=== PATIENT | female | born 1985 | race Caucasian/White ===

== ENCOUNTER 2017-05-23 18:28 | Emergency (ER) | payer OTHER ==
--- NOTE | ~2017-05-23 | CR126 ---
[facility]. [facility] A Service of [facility] & [facility] RADIOLOGY TEXT RESULTS PATIENT: ONEYDA MACIAS LOCATION: SED : 83 UNIT #: [id number] AGE: [address]: Pia Reed APRN SEX: F ORDER DR: [id number] [address] [address] [id number] MR#: [id number] Acc #: [id number] NAME: ONEYDA MACIAS : 1985 SEX: F STUDY DATE/TIME: 05/23/2017 19:21 UNIT: SED ROOM: STUDY DESCRIPTION: CR Foot Complete Min 3 View Lt Attending Physician: Pia Reed A.P.R.N. Ordering Physician: Pia Reed A.P.R.N. MEDICAL IMAGING REPORT This report is preliminary unless electronic signature is present. EXAM Left foot 3 views 05/23/2017 1921 hours HISTORY 31-year-old complaining of 1-week history of left foot pain and swelling. No known injury. COMPARISON None. FINDINGS AP, lateral and oblique views demonstrate dorsal soft tissue swelling over the metatarsal region. There is no fracture, dislocation or significant degenerative change. IMPRESSION Dorsal soft tissue swelling over the metatarsals. There is no fracture, dislocation or degenerative change seen. Dictated by... Judy Arias M.D. THIS IS AN ELECTRONICALLY VERIFIED REPORT Judy Arias M.D. at 05/24/2017 6:41 PM OMAYRA/sandy TD: 05/24/2017 08:21 JOB #: [id number] MEDICAL IMAGING REPORT Page 1 of 1
[2017-05-23] MEDS ORDERED: NO MEDICATIONS (18:31)
== END 2017-05-23 20:01 | disposition home or self-care (01) ==
LOC: SED 18:28
DX: M79.672 Pain in left foot (principal)
CPT/HCPCS: 29540; 73630; 99283